=== PATIENT | female | born 1975 | race Caucasian/White ===

== ENCOUNTER 2021-01-13 18:15 | Emergency (ER) | payer BC ==
[2021-01-13 18:31] VITALS: BP 125/74; PULSE 87; TEMP 98.6; BMI 29.9
[2021-01-13] MEDS ORDERED: MECLIZINE HCL 25 MG TABLET (FP) PO ONE (20:52)
[2021-01-13] MEDS ORDERED: SODIUM CHLORIDE 1,000 ML IV ONE (20:55)
[2021-01-13] MEDS ORDERED: MECLIZINE HCL 25 MG TABLET (FP) ONE (21:08)
[2021-01-13 21:41] LABS: BASO % 1.3 % (0-2.0); EOS % 1.6 % (0-4.5); HEMATOCRIT 38.1 % (32.4-45.2); HEMOGLOBIN 12.9 GM/dl (10.7-15.3); LYMPH % 20.6 % (8-40); MCH 29.5 pg (25.7-33.7); MCHC 33.9 g/dl (32.0-36.0); MEAN CELL VOLUME 87.1 fl (80-96); MEAN PLT VOLUME 9.9 fl (7.5-11.1); MONO % 5.5 % (3.8-10.2); PLATELET COUNT 257 K/MM3 (134-434); RBC 4.38 M/mm3 (3.60-5.2); RDW 13.4 % (11.6-15.6)
[2021-01-13 22:00] LABS: EPITHELIAL CELLS RARE /hpf
== END 2021-01-13 22:08 | disposition home or self-care (01) ==
LOC: FER 18:15
PROC: 3E0337Z Introduction of Electrolytic and Water Balance Substance into Peripheral Vein, Percutaneous Approach (ICD-10-PCS; principal; 2021-01-13)
DX: R42 Dizziness and giddiness (principal)
CPT/HCPCS: 36415; 81003; 81015; 84703; 85025; 93005; 99284-25